=== PATIENT | female | born 1975 | race Caucasian/White ===

== ENCOUNTER → 2016-12-07 15:54 | Outpatient (CLI) | payer BC ==
[2015-05-01 07:33] VITALS: BMI 36.1
[~2016-12-07 15:54] MED LIST: BACTRIM DS TABL1 TAB PO; BIOTIN5 MG PO; COLACE100 MG PO; HYDROCODON-ACE1 EAC7 PO; NORCO 10/325 TA1 TA1 PO; PHENERGAN25 M1 PO; WELLBUTRIN SR150 MG PO
== END | disposition home or self-care (01) ==
LOC: D.MRI 11:00
DX: M75.41 Impingement syndrome of right shoulder (principal); M25.511 Pain in right shoulder

== ENCOUNTER 2018-12-14 10:00 | Outpatient (CLI) | payer BC ==
[2015-05-01 07:33] VITALS: BMI 36.1
== END 2018-12-14 10:30 | disposition home or self-care (01) ==
LOC: D.MAMMO 10:00
PROVIDERS: ATTEND Student in an Organized Health Care Education/Training Program
DX: Z12.31 Encounter for screening mammogram for malignant neoplasm of breast (principal)

== ENCOUNTER → 2019-01-03 15:46 | Outpatient (CLI) | payer BC ==
[2015-05-01 07:33] VITALS: BMI 36.1
[2019-01-05 07:14] LABS: FOLLICLE STIMULATING HORMONE 3.8 mIU/mL (())
[2019-01-05 08:11] LABS: RAPID PLASMA REAGIN Non Reactive (Non Reactive)
== END | disposition home or self-care (01) ==
LOC: D.LAB 15:46
PROVIDERS: ATTEND Student in an Organized Health Care Education/Training Program
DX: R89.1 Abnormal level of hormones in specimens from other organs, systems and tissues (principal)